=== PATIENT | female | born 1950 | race Caucasian/White ===

== ENCOUNTER 2017-10-06 16:56 | Emergency (ER) | payer OTHER ==
--- NOTE | 2017-10-06 17:14 | ED Physician Documentation ---
General Adult - HISTORIAN Historian: patient - HPI Stated Complaint: fall Chief Complaint: Fall Onset: hours (1) Timing: still present Severity: mild Further Comments: yes (Per EMT she was on the floor at home - only help is son and he could not get her off the floor. Son and EMT report confusion with pt. She states that her hips hurt - she is "not sure" of any other complaints. Her PCP called while pt was being admitted that she has had some issues with low blood sugars after weight loss she was experincencing working with weight clinic. She has pain also in her coccyx per her complaint. Once son arrived he did report she was very confused around the time of her fall and states her orientation is "some better" at this time but he does feel that she is still slow to respond) Last known Well Code/Unknown Code: Unknown - ROS CONST: no problems EYES/ENT: none CVS/RESP: shortness of breath (She wears oxygen at home and CPAP ) MS/SKIN/LYMPH: none NEURO/PSYCH: dizziness, difficulty walking, difficulty with speech (slow to respond at home and in ambulance ). denies: headache - PAST HX Past History: COPD, other (Diabetes, morbid obesity, Hypothryoidism, depression , ) Surgeries/Procedures: other Immunizations: UTD - SOCIAL HX Smoking History: non-smoker Alcohol Use: none Drug Use: none - FAMILY HX Family History: No - REVIEWED ASSESSMENTS Nursing Assessment Reviewed: Yes Vitals Reviewed: Yes General Adult Physical Exam - PHYSICAL EXAM GENERAL APPEARANCE: mild distress EENT: eye inspection normal, ENT inspection normal, pharynx normal, no signs of dehydration NECK: normal inspection RESPIRATORY: wheezes (expiratory RUL ), other (Mild resp distress ) CVS: reg rate & rhythm, heart sounds normal, equal pulses ABDOMEN: soft BACK: normal inspection SKIN: warm/dry, other (red areas on bilateral lower legs with crusting on lower legs and feet ) EXTREMITIES: non-tender, other (LISETH due to weight (she does complain of pain with palpation on both hips) skin tear on right arm noted (EMT states this was from aid in getting her off the floor) right panus with redness and inflammation ) NEURO: other (she is aware of her orientation although her commments are slow to respond and son states "slower than usual although better than before she left home" ) Discharge Clincal Impression: Mental status change Qualifiers: Altered mental status type: unspecified Qualified Code(s): R41.82 - Altered mental status, unspecified Referrals: Darcy Stone FNP [Primary Care Provider] - 2 Days Comments: 1. Transfer to [facility] due to weight and CT Dr Powell accepting in ER 1720 DG Condition: Serious Disposition: 02 XFER SHT-TRM HOSP Decision to Admit: NO Date of Decison to Admit: 10/06/17 Decision Time: 17:20
[2017-10-06] MEDS ORDERED: 0.9 % SODIUM CHLORIDE 1,000 ML IV ONE ×2 (17:22→17:41)
[2017-10-07 00:15] VITALS: BP 129/45
== END 2017-10-06 18:02 | disposition short-term general hospital (02) ==
LOC: ED 16:56
DX: R41.82 Altered mental status, unspecified (principal)
CPT/HCPCS: 96360; 99285; J7030